=== PATIENT | female | born 1955 | race Hispanic/Latino ===

== ENCOUNTER 2017-11-23 10:16 | Emergency (ER) | payer SELFPAY ==
[~2017-11-23 10:16] MED LIST: OSEL75 PO
[2017-11-23 11:23] LABS: RAPID GROUP A STREP NEGATIVE (NEGATIVE)
== END 2017-11-23 11:40 | disposition home or self-care (01) ==
LOC: EDH 10:16
DX: H61.22 Impacted cerumen, left ear (principal); J02.8 Acute pharyngitis due to other specified organisms; G43.909 Migraine, unspecified, not intractable, without status migrainosus; Z90.49 Acquired absence of other specified parts of digestive tract
CPT/HCPCS: 87804; 87880

== ENCOUNTER 2018-09-20 01:18 | Emergency (ER) | payer SELFPAY ==
[2018-09-20 01:55] LABS: BASOPHILS % (AUTO) 0.5 % (0.0-5.0); EOSINOPHILS % (AUTO) 1.2 % (0.0-8.0); HEMATOCRIT 41.6 % (36-48); LYMPHOCYTES % (AUTO) 20.4 % (21.0-51.0); MEAN CORPUSCULAR HEMOGLOBIN 30.2 pg (27.0-33.0); MEAN CORPUSCULAR HGB CONC 33.1 g/dL (32.0-36.0); MEAN CORPUSCULAR VOLUME 91.4 fL (79-99); MONOCYTES % (AUTO) 7.3 % (3.0-13.0); NEUTROPHILS % (AUTO) 70.6 % (40.0-77.0); NUCLEATED RED BLOOD CELLS 0.1 % (0.0-0.19); PLATELET COUNT (AUTO) 220 K/uL (130-400); RED BLOOD CELL COUNT(AUTO) 4.55 MIL/uL (4.00-5.50); RED CELL DISTRIBUTION WIDTH 12.8 % (11.0-15.5); WHITE BLOOD COUNT (AUTO) 12.5 K/uL (4.8-10.8)
[2018-09-20] MEDS ORDERED: MORPHINE SULFATE 4 MG/1ML SYG ONE (01:55)
[2018-09-20] MEDS ORDERED: ONDANSETRON HCL 4 MG/2 ML VIAL ONE (01:55)
[2018-09-20] MEDS ORDERED: SODIUM CHLORIDE 0.9% 1000ML 1,000 ML IV ONE (01:55)
[2018-09-20 02:08] LABS: CREATININE 0.7 mg/dL (0.5-1.5); POTASSIUM 4.1 mmol/L (3.5-5.1)
[2018-09-20 02:12] LABS: ALBUMIN 3.8 g/dL (3.5-5.0); BILIRUBIN,TOTAL 0.3 mg/dL (0.2-1.0); TOTAL PROTEIN, SERUM 8.2 g/dL (6.0-8.3)
[2018-09-20 02:19] LABS: APPEARANCE,URINE Clear (CLEAR); BILIRUBIN,URINE Negative (NEGATIVE); COLOR,URINE Yellow (YELLOW); GLUCOSE, URINE (UA) Negative (NEGATIVE); KETONES,URINE Negative (NEGATIVE); LEUKOCYTE ESTERASE ,URINE Negative (NEGATIVE); NITRATE,URINE Negative (NEGATIVE); OCCULT BLOOD,URINE Negative (NEGATIVE); PROTEIN,URINE Negative (NEGATIVE); UROBILINOGEN,URINE 0.2 mg/dL (0.2-1.0)
[2018-09-20] MEDS ORDERED: IOHEXOL-350 75 ML VIAL IV ONE (03:14)
[2018-09-20] MEDS ORDERED: DiphenhydrAMINE HCL 50 MG/ML VIAL ONE (03:34)
[2018-09-20] MEDS ORDERED: PROCHLORPERAZINE EDISYLATE 10 MG/2 ML VIAL ONE (03:34)
[2018-09-20] MEDS ORDERED: SODIUM CHLORIDE 0.9% 500ML 500 ML IV ONE (03:34)
== END 2018-09-20 05:53 | disposition home or self-care (01) ==
LOC: EDH 01:18
DX: K52.9 Noninfective gastroenteritis and colitis, unspecified (principal); G43.909 Migraine, unspecified, not intractable, without status migrainosus; Z90.49 Acquired absence of other specified parts of digestive tract
CPT/HCPCS: 36415; 74177; 80053; 81003; 82550; 83690; 84484; 85025; 93005; 96361; 96374; 96375; 99285; J2270; J2405; J7030; Q9967; J0780; J1200; J7040

== ENCOUNTER 2018-10-08 22:44 | Emergency (ER) | payer OTHER | END 2018-10-08 23:17 | disposition home or self-care (01) | LOC: EDH 22:44 | DX: J06.9 Acute upper respiratory infection, unspecified (principal); G43.909 Migraine, unspecified, not intractable, without status migrainosus; Z90.49 Acquired absence of other specified parts of digestive tract | CPT/HCPCS: 99281 ==

== ENCOUNTER 2018-11-21 23:25 | Emergency (ER) | payer OTHER ==
[2018-11-22 00:11] LABS: APPEARANCE,URINE Clear (CLEAR); BILIRUBIN,URINE Negative (NEGATIVE); COLOR,URINE Yellow (YELLOW); GLUCOSE, URINE (UA) Negative (NEGATIVE); KETONES,URINE Negative (NEGATIVE); LEUKOCYTE ESTERASE ,URINE Negative (NEGATIVE); NITRATE,URINE Negative (NEGATIVE); OCCULT BLOOD,URINE Negative (NEGATIVE); PROTEIN,URINE Negative (NEGATIVE); UROBILINOGEN,URINE 0.2 mg/dL (0.2-1.0)
[2018-11-22 00:25] LABS: BASOPHILS % (AUTO) 0.5 % (0.0-5.0); EOSINOPHILS % (AUTO) 0.3 % (0.0-8.0); HEMATOCRIT 35.5 % (36-48); LYMPHOCYTES % (AUTO) 16.9 % (21.0-51.0); MEAN CORPUSCULAR HEMOGLOBIN 30.5 pg (27.0-33.0); MEAN CORPUSCULAR HGB CONC 33.8 g/dL (32.0-36.0); MEAN CORPUSCULAR VOLUME 90.1 fL (79-99); MONOCYTES % (AUTO) 11.4 % (3.0-13.0); NEUTROPHILS % (AUTO) 70.9 % (40.0-77.0); PLATELET COUNT (AUTO) 210 K/uL (130-400); RED BLOOD CELL COUNT(AUTO) 3.94 MIL/uL (4.00-5.50); RED CELL DISTRIBUTION WIDTH 12.9 % (11.0-15.5); WHITE BLOOD COUNT (AUTO) 12.8 K/uL (4.8-10.8)
[2018-11-22] MEDS ORDERED: SODIUM CHLORIDE 0.9% 500ML 500 ML IV ONE (00:30)
[2018-11-22] MEDS ORDERED: ACETAMINOPHEN EXTRA STRENGTH 500 MG TABLET ONE (00:30)
[2018-11-22 00:35] LABS: CREATININE 0.7 mg/dL (0.5-1.5); POTASSIUM 4.1 mmol/L (3.5-5.1)
[2018-11-22 00:42] LABS: ALBUMIN 3.4 g/dL (3.5-5.0); BILIRUBIN,TOTAL 0.5 mg/dL (0.2-1.0); TOTAL PROTEIN, SERUM 7.8 g/dL (6.0-8.3)
== END 2018-11-22 02:03 | disposition home or self-care (01) ==
LOC: EDH 23:25
DX: J06.9 Acute upper respiratory infection, unspecified (principal); Z90.49 Acquired absence of other specified parts of digestive tract
CPT/HCPCS: 36415 ×2; 71045; 80053; 81003; 83605; 85025; 87040 ×2; 87088; 87804 ×2; 99284; J7040

== ENCOUNTER 2019-01-28 09:04 | Inpatient (IN) | payer SELFPAY ==
[~2019-01-28] VITALS: Ht 144.8 cm; Wt 75.3 kg
[2019-01-28 09:32] LABS: BASOPHILS % (AUTO) 0.8 % (0.0-5.0); EOSINOPHILS % (AUTO) 3.9 % (0.0-8.0); HEMATOCRIT 37.6 % (36-48); MEAN CORPUSCULAR HEMOGLOBIN 30.8 pg (27.0-33.0); MEAN CORPUSCULAR HGB CONC 34.2 g/dL (32.0-36.0); MONOCYTES % (AUTO) 7.6 % (3.0-13.0); NEUTROPHILS % (AUTO) 48.7 % (40.0-77.0); PLATELET COUNT (AUTO) 218 K/uL (130-400); RED BLOOD CELL COUNT(AUTO) 4.18 MIL/uL (4.00-5.50); RED CELL DISTRIBUTION WIDTH 13.9 % (11.0-15.5); WHITE BLOOD COUNT (AUTO) 6.7 K/uL (4.8-10.8)
[2019-01-28 09:44] LABS: CREATININE 0.7 mg/dL (0.5-1.5); POTASSIUM 3.7 mmol/L (3.5-5.1)
[2019-01-28 09:45] LABS: INR 0.96 (0.85-1.15); PROTHROMBIN TIME 10.1 SEC (9.6-11.6)
[2019-01-28 09:54] LABS: ALBUMIN 3.7 g/dL (3.5-5.0); BILIRUBIN,TOTAL 0.5 mg/dL (0.2-1.0); TOTAL PROTEIN, SERUM 7.8 g/dL (6.0-8.3)
[2019-01-28] MEDS ORDERED: ASPIRIN 325 MG TABLET ONE (10:26)
[2019-01-28] MEDS ORDERED: MECLIZINE HCL 25 MG TABLET ONE (10:26)
[2019-01-28] MEDS: SODIUM CHLORIDE 0.9% 1000ML 1,000 ML IV SCH ×2 (13:27→23:27)
[2019-01-28] MEDS ORDERED: ONDANSETRON HCL 4 MG/2 ML VIAL IV PRN (13:30)
[2019-01-28] MEDS ORDERED: ACETAMINOPHEN 325 MG TAB PO PRN (13:30)
[2019-01-28] MEDS ORDERED: LACTULOSE 20 GM/30 ML UDCUP PO PRN (13:30)
[2019-01-28] MEDS ORDERED: ALBUTEROL SULFATE 0.083% 2.5 MG/3 ML INH IH ONE (13:41)
[2019-01-28 14:16] LABS: % IRON SATURATION 33.3 % (22-44)
[2019-01-28 14:26] LABS: CREATINE KINASE, TOTAL 75 U/L (21-232); MYOGLOBIN 32 ng/mL (10-92); TROPONIN I < 0.04 ng/mL (0.00-0.06)
[2019-01-28 15:28] LABS: APPEARANCE,URINE Clear (CLEAR); BILIRUBIN,URINE Negative (NEGATIVE); COLOR,URINE Yellow (YELLOW); GLUCOSE, URINE (UA) Negative (NEGATIVE); KETONES,URINE Negative (NEGATIVE); LEUKOCYTE ESTERASE ,URINE Negative (NEGATIVE); NITRATE,URINE Negative (NEGATIVE); OCCULT BLOOD,URINE Negative (NEGATIVE); PROTEIN,URINE Negative (NEGATIVE)
[2019-01-28 15:39] LABS: BACTERIA,URINE Rare /HPF (None Seen); RBC,URINE 0-1 /HPF (0-1); SQUAMOUS EPITHELIAL CELL,UR Rare /HPF (0-2); WBC,URINE 0-1 /HPF (0-1)
[2019-01-28] MEDS ORDERED: ENOXAPARIN SODIUM 40 MG/0.4 ML SYRINGE SQ ONE (17:20)
[2019-01-28] MEDS: ALBUTEROL SULFATE 0.083% 2.5 MG/3 ML INH IH SCH ×2 (18:24→23:48)
[2019-01-28 20:39] VITALS: BP 98/53
--- NOTE | 2019-01-28 22:00 | NUR ---
Dr. Vee came to see patient, ordered Ibuprofen 800 mg PO every 8 hours x 6 doses for muscle pain. First dose administered as per order.
[2019-01-28 22:01] LABS: CREATINE KINASE, TOTAL 55 U/L (21-232); MYOGLOBIN 20 ng/mL (10-92); TROPONIN I < 0.04 ng/mL (0.00-0.06)
[2019-01-28] MEDS: FAMOTIDINE 20MG TAB 20 MG TAB PO SCH (22:25)
[2019-01-28] MEDS: IBUPROFEN 800 MG TAB PO SCH (23:16)
[2019-01-28 23:30] VITALS: BP 95/46
--- NOTE | 2019-01-29 02:00 | NUR ---
ROUNDS PT RESTING WELL, FAIRLY ASLEEP WITH RESPIRATIONS EVEN AND UNLABORED. NO DISTRESS NOTED. KEPT UNDISTURBED FOR NOW. CALL LIGHT WITHIN REACH. FAMILY AT BEDSIDE. WILL MONITOR PT.
[2019-01-29 03:00] VITALS: BP 95/45
[2019-01-29 05:39] LABS: CREATINE KINASE, TOTAL 47 U/L (21-232); MYOGLOBIN 21 ng/mL (10-92); TROPONIN I < 0.04 ng/mL (0.00-0.06)
[2019-01-29] MEDS: ALBUTEROL SULFATE 0.083% 2.5 MG/3 ML INH IH SCH ×2 (06:50→11:32)
[2019-01-29] MEDS: SODIUM CHLORIDE 0.9% 1000ML 1,000 ML IV SCH (07:02)
[2019-01-29] MEDS: IBUPROFEN 800 MG TAB PO SCH (07:02)
--- NOTE | 2019-01-29 07:30 | NUR ---
REPORT PURNIMA OCAMPO ON ORIENTATION, GAVE REPORT TO GONZALES LOCKETT RN. NURSE'S ROUNDS DONE. PT STILL FAIRLY ASLEEP. FOR MORE CARE AND MANAGEMENT.
[2019-01-29 08:01] VITALS: BP 113/57
[2019-01-29] MEDS: FAMOTIDINE 20MG TAB 20 MG TAB PO SCH (08:46)
[2019-01-29] MEDS ORDERED: ENOXAPARIN SODIUM 40 MG/0.4 ML SYRINGE SQ SCH (09:00)
[2019-01-29] MEDS ORDERED: ASPIRIN 325 MG TABLET PO SCH (09:00)
[2019-01-29 11:29] VITALS: BP 118/68
--- NOTE | 2019-01-29 15:30 | NUR ---
Pt d/c home Pt safely d/c home, d/c instruction given, pt verbalized understanding, refused flu vaccine, stated she will get as out pt, IV removed, catheter tip intact, no complication noted, pt safely d/c home accompanied with her daughter.
--- NOTE | 2019-01-29 15:30 | NUR ---
KASSY SPOKE W PT AND ABIODUN AT [facility] PREPARING FOR DISCHARGE- PT IS AAOX3 LATVIAN SPEAKING INDP OF ADLS , NO DME; NO INSURANCE, NO CLINIC AFFLIATION; SELF PAY PKT GIVEN Addendum: 01/29/19 at 1718 by DANTE LINDSEY RN CM Amended: Links added.
== END 2019-01-29 15:36 | disposition home or self-care (01) | DRG 206 ==
LOC: EDH 09:04 → OBSVTOIN 09:05 → EDHIP 09:05 → 3DH 20:11
PROVIDERS: ADMIT Internal Medicine; ATTEND Internal Medicine
DX: M94.0 Chondrocostal junction syndrome [Tietze] (principal); Z80.0 Family history of malignant neoplasm of digestive organs; Z82.3 Family history of stroke; Z83.3 Family history of diabetes mellitus; Z82.49 Family history of ischemic heart disease and other diseases of the circulatory system; Z90.49 Acquired absence of other specified parts of digestive tract
CPT/HCPCS: 36415; 70450; 71045; 80053; 81001; 82550; 83540; 83550; 83874; 83880; 84443; 84484; 85025; 85610; 85730; 93005; 93306; 94640; 94664; G0378; J1650; J7030

== ENCOUNTER 2019-03-24 10:53 | Emergency (ER) | payer SELFPAY ==
[2019-03-24] MEDS ORDERED: ACETAMINOPHEN EXTRA STRENGTH 500 MG TABLET ONE (12:59)
[2019-03-24 13:34] LABS: BASOPHILS % (AUTO) 0.6 % (0.0-5.0); EOSINOPHILS % (AUTO) 0.1 % (0.0-8.0); LYMPHOCYTES % (AUTO) 11.5 % (21.0-51.0); MEAN CORPUSCULAR HEMOGLOBIN 30.3 pg (27.0-33.0); MEAN CORPUSCULAR HGB CONC 33.5 g/dL (32.0-36.0); MEAN CORPUSCULAR VOLUME 90.5 fL (79-99); MONOCYTES % (AUTO) 5.4 % (3.0-13.0); NEUTROPHILS % (AUTO) 82.4 % (40.0-77.0); PLATELET COUNT (AUTO) 202 K/uL (130-400); RED BLOOD CELL COUNT(AUTO) 4.09 MIL/uL (4.00-5.50); WHITE BLOOD COUNT (AUTO) 10.4 K/uL (4.8-10.8)
[2019-03-24 13:43] LABS: RAPID GROUP A STREP NEGATIVE (NEGATIVE)
[2019-03-24 13:52] LABS: CREATININE 0.8 mg/dL (0.5-1.5); POTASSIUM 4.1 mmol/L (3.5-5.1)
[2019-03-24 13:57] LABS: ALBUMIN 3.8 g/dL (3.5-5.0); BILIRUBIN,TOTAL 0.5 mg/dL (0.2-1.0); TOTAL PROTEIN, SERUM 8.1 g/dL (6.0-8.3)
== END 2019-03-24 15:42 | disposition home or self-care (01) ==
LOC: EDH 10:53
DX: J20.9 Acute bronchitis, unspecified (principal); M79.10 Myalgia, unspecified site; G43.909 Migraine, unspecified, not intractable, without status migrainosus
CPT/HCPCS: 36415; 71045; 80053; 82550; 84484; 85025; 87804; 87880; 93005

== ENCOUNTER 2019-03-26 04:01 | Emergency (ER) | payer SELFPAY ==
[2019-03-26] MEDS ORDERED: ACETAMINOPHEN 325 MG TAB ONE (04:23)
[2019-03-26 04:41] LABS: APPEARANCE,URINE Clear (CLEAR); BILIRUBIN,URINE Negative (NEGATIVE); COLOR,URINE Yellow (YELLOW); GLUCOSE, URINE (UA) Negative (NEGATIVE); KETONES,URINE Negative (NEGATIVE); LEUKOCYTE ESTERASE ,URINE Negative (NEGATIVE); NITRATE,URINE Negative (NEGATIVE); OCCULT BLOOD,URINE Trace (NEGATIVE); PH,URINE 5.5 (5.0-8.0); PROTEIN,URINE Negative (NEGATIVE)
[2019-03-26 04:46] LABS: BASOPHILS % (AUTO) 0.4 % (0.0-5.0); EOSINOPHILS % (AUTO) 0.3 % (0.0-8.0); HEMATOCRIT 36.7 % (36-48); LYMPHOCYTES % (AUTO) 14.9 % (21.0-51.0); MEAN CORPUSCULAR HEMOGLOBIN 30.2 pg (27.0-33.0); MEAN CORPUSCULAR HGB CONC 33.5 g/dL (32.0-36.0); MEAN CORPUSCULAR VOLUME 90.1 fL (79-99); MONOCYTES % (AUTO) 8.1 % (3.0-13.0); NEUTROPHILS % (AUTO) 76.3 % (40.0-77.0); PLATELET COUNT (AUTO) 199 K/uL (130-400); RED BLOOD CELL COUNT(AUTO) 4.07 MIL/uL (4.00-5.50); RED CELL DISTRIBUTION WIDTH 13.1 % (11.0-15.5); WHITE BLOOD COUNT (AUTO) 11.3 K/uL (4.8-10.8)
[2019-03-26 04:51] LABS: CARBON DIOXIDE 28 mmol/L (21-32); CHLORIDE 100 mmol/L (101-111); CREATININE 0.7 mg/dL (0.5-1.5); GLOMERULAR FILTR. RATE CALC 90 mL/min (>60); GLUCOSE,RANDOM 126 mg/dL (70-105); POTASSIUM 4.1 mmol/L (3.5-5.1); SODIUM SERUM 137 mmol/L (136-145); UREA NITROGEN, BLOOD 11 mg/dL (7-18)
[2019-03-26 04:57] LABS: INR 0.97 (0.85-1.15); PARTIAL THROMBOPLASTIN TIME 26.8 SEC (26.3-35.5); PROTHROMBIN TIME 10.2 SEC (9.6-11.6)
[2019-03-26 05:01] LABS: ALANINE AMINOTRANSFERASE 20 U/L (12-78); ALBUMIN 3.5 g/dL (3.5-5.0); ASPARTATE AMINOTRANSFERASE 20 U/L (10-37); BILIRUBIN,TOTAL 0.3 mg/dL (0.2-1.0); CREATINE KINASE, TOTAL 63 U/L (21-232); MYOGLOBIN 18 ng/mL (10-92); TROPONIN I < 0.04 ng/mL (0.00-0.06)
[2019-03-26 05:39] LABS: BACTERIA,URINE Rare /HPF (None Seen); RBC,URINE 0-1 /HPF (0-1); SQUAMOUS EPITHELIAL CELL,UR 0-2 /HPF (0-2); WBC,URINE 0-1 /HPF (0-1)
[2019-03-26] MEDS ORDERED: BENZONATATE 100 MG CAPSULE PO ONE (06:37)
[2019-03-26] MEDS ORDERED: IBUPROFEN 200 MG TAB ONE (06:37)
[2019-03-26] MEDS ORDERED: IBUPROFEN 400 MG TABLET ONE (06:37)
== END 2019-03-26 07:04 | disposition home or self-care (01) ==
LOC: EDH 04:01
DX: B34.9 Viral infection, unspecified (principal); R50.81 Fever presenting with conditions classified elsewhere; G43.909 Migraine, unspecified, not intractable, without status migrainosus
CPT/HCPCS: 36415; 71046; 80053; 81001; 82550; 83605; 83874; 84484; 85025; 85610; 85730; 87040; 87088; 87804; 87880; 93005

== ENCOUNTER 2019-04-15 06:51 | Emergency (ER) | payer SELFPAY ==
[2019-04-15 07:54] LABS: BASOPHILS % (AUTO) 0.4 % (0.0-5.0); EOSINOPHILS % (AUTO) 0.6 % (0.0-8.0); HEMATOCRIT 33.1 % (36-48); LYMPHOCYTES % (AUTO) 11.8 % (21.0-51.0); MEAN CORPUSCULAR HEMOGLOBIN 30.4 pg (27.0-33.0); MEAN CORPUSCULAR HGB CONC 33.3 g/dL (32.0-36.0); MEAN CORPUSCULAR VOLUME 91.4 fL (79-99); NEUTROPHILS % (AUTO) 81.2 % (40.0-77.0); PLATELET COUNT (AUTO) 196 K/uL (130-400); RED BLOOD CELL COUNT(AUTO) 3.62 MIL/uL (4.00-5.50); RED CELL DISTRIBUTION WIDTH 13.4 % (11.0-15.5); WHITE BLOOD COUNT (AUTO) 12.1 K/uL (4.8-10.8)
[2019-04-15] MEDS ORDERED: ONDANSETRON HCL 4 MG/2 ML VIAL ONE (08:01)
[2019-04-15 08:02] LABS: CREATININE 0.5 mg/dL (0.5-1.5); POTASSIUM 3.8 mmol/L (3.5-5.1)
[2019-04-15] MEDS ORDERED: DIPHENOXYLATE HCL/ATROPINE 2.5/0.025 MG TAB PO ONE (08:02)
[2019-04-15] MEDS ORDERED: SODIUM CHLORIDE 0.9% 1000ML 1,000 ML IV ONE (08:02)
[2019-04-15 08:04] LABS: APPEARANCE,URINE Cloudy (CLEAR); BILIRUBIN,URINE Negative (NEGATIVE); COLOR,URINE Yellow (YELLOW); GLUCOSE, URINE (UA) Negative (NEGATIVE); KETONES,URINE Negative (NEGATIVE); LEUKOCYTE ESTERASE ,URINE Trace (NEGATIVE); NITRATE,URINE Negative (NEGATIVE); OCCULT BLOOD,URINE Negative (NEGATIVE); PH,URINE 6.5 (5.0-8.0); PROTEIN,URINE Trace mg/dL (NEGATIVE)
[2019-04-15] MEDS ORDERED: IBUPROFEN 600 MG TABLET ONE (08:06)
[2019-04-15 08:07] LABS: TOTAL PROTEIN, SERUM 7.5 g/dL (6.0-8.3)
[2019-04-15 08:15] LABS: ALBUMIN 3.5 g/dL (3.5-5.0)
[2019-04-15 08:35] LABS: BACTERIA,URINE Moderate /HPF (None Seen); RBC,URINE 0-1 /HPF (0-1); SQUAMOUS EPITHELIAL CELL,UR Few /HPF (0-2); WBC,URINE 0-1 /HPF (0-1)
[2019-04-15] MEDS ORDERED: IOHEXOL-350 75 ML VIAL IV ONE (08:35)
[2019-04-15 08:36] LABS: MUCUS,URINE Rare LPF (None Seen)
== END 2019-04-15 10:22 | disposition home or self-care (01) ==
LOC: EDH 06:51
DX: K57.92 Diverticulitis of intestine, part unspecified, without perforation or abscess without bleeding (principal); G43.909 Migraine, unspecified, not intractable, without status migrainosus
CPT/HCPCS: 36415; 74177; 80053; 81001; 83690; 85025; 87804 ×2; 96361; 96374; 99285; J2405; J7030; Q9967

== ENCOUNTER 2019-06-19 15:08 | Emergency (ER) | payer SELFPAY ==
[2019-06-19 15:29] LABS: BASOPHILS % (AUTO) 0.4 % (0.0-5.0); EOSINOPHILS % (AUTO) 2.2 % (0.0-8.0); HEMATOCRIT 37.2 % (36-48); LYMPHOCYTES % (AUTO) 31.9 % (21.0-51.0); MEAN CORPUSCULAR HEMOGLOBIN 30.5 pg (27.0-33.0); MEAN CORPUSCULAR HGB CONC 33.6 g/dL (32.0-36.0); MEAN CORPUSCULAR VOLUME 90.6 fL (79-99); MONOCYTES % (AUTO) 9.1 % (3.0-13.0); NEUTROPHILS % (AUTO) 56.4 % (40.0-77.0); PLATELET COUNT (AUTO) 234 K/uL (130-400); RED BLOOD CELL COUNT(AUTO) 4.11 MIL/uL (4.00-5.50); RED CELL DISTRIBUTION WIDTH 13.8 % (11.0-15.5); WHITE BLOOD COUNT (AUTO) 9.3 K/uL (4.8-10.8)
[2019-06-19 15:43] LABS: CREATININE 0.8 mg/dL (0.5-1.5); POTASSIUM 3.8 mmol/L (3.5-5.1)
[2019-06-19 15:48] LABS: ALBUMIN 3.8 g/dL (3.5-5.0); BILIRUBIN,TOTAL 0.3 mg/dL (0.2-1.0); TOTAL PROTEIN, SERUM 7.4 g/dL (6.0-8.3)
[2019-06-19 15:56] LABS: CREATINE KINASE, TOTAL 87 U/L (21-232); MYOGLOBIN 26 ng/mL (10-92); TROPONIN I < 0.04 ng/mL (0.00-0.06)
[2019-06-19] MEDS ORDERED: CYCLOBENZAPRINE HCL 10 MG TABLET ONE (17:56)
[2019-06-19] MEDS ORDERED: TRAMADOL HCL 50 MG TABLET ONE (17:57)
== END 2019-06-19 19:09 | disposition home or self-care (01) ==
LOC: EDH 15:08
DX: M25.512 Pain in left shoulder (principal); M54.2 Cervicalgia; G43.909 Migraine, unspecified, not intractable, without status migrainosus
CPT/HCPCS: 36415; 71045; 72125; 80053; 82550; 83874; 84443; 84484; 85025; 93005

== ENCOUNTER 2019-07-18 15:49 | Emergency (ER) | payer SELFPAY ==
[2019-07-18 16:30] LABS: BASOPHILS % (AUTO) 0.4 % (0.0-5.0); EOSINOPHILS % (AUTO) 1.3 % (0.0-8.0); HEMATOCRIT 38.3 % (36-48); LYMPHOCYTES % (AUTO) 21.5 % (21.0-51.0); MEAN CORPUSCULAR HEMOGLOBIN 30.8 pg (27.0-33.0); MEAN CORPUSCULAR HGB CONC 34.2 g/dL (32.0-36.0); MEAN CORPUSCULAR VOLUME 89.9 fL (79-99); MONOCYTES % (AUTO) 6.9 % (3.0-13.0); NEUTROPHILS % (AUTO) 69.9 % (40.0-77.0); NUCLEATED RED BLOOD CELLS 0.1 % (0.0-0.19); PLATELET COUNT (AUTO) 264 K/uL (130-400); RED BLOOD CELL COUNT(AUTO) 4.26 MIL/uL (4.00-5.50); RED CELL DISTRIBUTION WIDTH 13.8 % (11.0-15.5); WHITE BLOOD COUNT (AUTO) 12.2 K/uL (4.8-10.8)
[2019-07-18] MEDS ORDERED: SODIUM CHLORIDE 0.9% 1000ML 1,000 ML IV ONE (16:30)
[2019-07-18] MEDS ORDERED: ONDANSETRON HCL 4 MG/2 ML VIAL ONE (16:30)
[2019-07-18 16:32] LABS: CREATININE 0.8 mg/dL (0.5-1.5); POTASSIUM 3.5 mmol/L (3.5-5.1)
[2019-07-18 16:36] LABS: BILIRUBIN,TOTAL 0.2 mg/dL (0.2-1.0); TOTAL PROTEIN, SERUM 8.2 g/dL (6.0-8.3)
== END 2019-07-18 18:25 | disposition home or self-care (01) ==
LOC: EDH 15:49
DX: A09 Infectious gastroenteritis and colitis, unspecified (principal); E86.9 Volume depletion, unspecified; G43.909 Migraine, unspecified, not intractable, without status migrainosus
CPT/HCPCS: 36415; 74176; 80053; 83690; 85025; 96361; 96374; 99285; J2405; J7030

== ENCOUNTER 2019-09-09 16:05 | Observation (INO) | payer SELFPAY ==
[~2019-09-09] VITALS: Ht 144.8 cm; Wt 76.6 kg
[2019-09-09 09:30] VITALS: BP 127/76
[2019-09-09] MEDS ORDERED: ASPIRIN 325 MG TABLET ONE (16:14)
[2019-09-09 16:31] LABS: CREATININE 0.7 mg/dL (0.5-1.5); POTASSIUM 3.9 mmol/L (3.5-5.1)
[2019-09-09 16:32] LABS: INR 0.98 (0.85-1.15); PARTIAL THROMBOPLASTIN TIME 25.6 SEC (26.3-35.5); PROTHROMBIN TIME 10.3 SEC (9.6-11.6)
[2019-09-09 16:34] LABS: ALBUMIN 3.6 g/dL (3.5-5.0); BASOPHILS % (AUTO) 0.8 % (0.0-5.0); BILIRUBIN,TOTAL 0.3 mg/dL (0.2-1.0); EOSINOPHILS % (AUTO) 2.8 % (0.0-8.0); HEMATOCRIT 35.1 % (36-48); LYMPHOCYTES % (AUTO) 34.8 % (21.0-51.0); MEAN CORPUSCULAR HEMOGLOBIN 31.5 pg (27.0-33.0); MEAN CORPUSCULAR HGB CONC 34.3 g/dL (32.0-36.0); MEAN CORPUSCULAR VOLUME 91.9 fL (79-99); MONOCYTES % (AUTO) 7.4 % (3.0-13.0); NEUTROPHILS % (AUTO) 54.2 % (40.0-77.0); NUCLEATED RED BLOOD CELLS 0.1 % (0.0-0.19); PLATELET COUNT (AUTO) 199 K/uL (130-400); RED BLOOD CELL COUNT(AUTO) 3.82 MIL/uL (4.00-5.50); RED CELL DISTRIBUTION WIDTH 13.1 % (11.0-15.5); TOTAL PROTEIN, SERUM 7.7 g/dL (6.0-8.3); WHITE BLOOD COUNT (AUTO) 7.7 K/uL (4.8-10.8)
[2019-09-09] MEDS ORDERED: METOPROLOL TARTRATE 25 MG TAB ONE ×2 (17:56→20:19)
[2019-09-09] MEDS ORDERED: NITROGLYCERIN 1GM/1 INCH PACKET TD ONE (18:42)
[2019-09-09] MEDS ORDERED: MORPHINE SULFATE 2 MG/ML 1ML SYG IV PRN (19:15)
[2019-09-09] MEDS ORDERED: NITROGLYCERIN 0.4 MG SL TAB SL PRN (19:15)
[2019-09-09] MEDS ORDERED: ACETAMINOPHEN 325 MG TAB PO PRN ×2 (19:15)
[2019-09-09] MEDS ORDERED: LACTULOSE 20 GM/30 ML UDCUP PO PRN (19:15)
[2019-09-09] MEDS ORDERED: ONDANSETRON HCL 4 MG/2 ML VIAL IV PRN (19:15)
[2019-09-09] MEDS ORDERED: ATORVASTATIN CALCIUM 20 MG TABLET ONE (20:19)
[2019-09-09] MEDS ORDERED: FAMOTIDINE 20MG TAB 20 MG TAB ONE (20:19)
[2019-09-09 20:59] LABS: HEMOGLOBIN A1C 6.1 % (4.0-6.0)
[2019-09-09] MEDS: METOPROLOL TARTRATE 25 MG TAB PO SCH (21:00)
[2019-09-09] MEDS ORDERED: ATORVASTATIN CALCIUM 20 MG TABLET PO SCH (21:00)
[2019-09-09] MEDS: FAMOTIDINE 20MG TAB 20 MG TAB PO SCH (21:00)
[2019-09-09 21:10] LABS: CHOLESTEROL 250 mg/dL (<200); LDL DIRECT 166 mg/dL (0-99); TRIGLYCERIDES 174 mg/dL (30-200)
[2019-09-09 21:24] LABS: HDL CHOLESTEROL 68 mg/dL (35-85)
[2019-09-09 23:00] VITALS: BP 102/44
[2019-09-10 03:00] VITALS: BP 121/75
[2019-09-10] MEDS: INSULIN HUMULIN R 100 UNIT/ML 3ML SQ SCH ×2 (05:54→11:30)
[2019-09-10 07:00] VITALS: BP 133/65
[2019-09-10] MEDS ORDERED: FLU VACC QS2019-20 36MOS UP/PF 60 MCG/0.5 ML ML IM ONE ×2 (09:00→17:07)
[2019-09-10] MEDS ORDERED: ENOXAPARIN SODIUM 30 MG/0.3 ML SQ SCH (09:00)
[2019-09-10] MEDS ORDERED: ASPIRIN 325 MG TABLET PO SCH (09:00)
[2019-09-10] MEDS: METOPROLOL TARTRATE 25 MG TAB PO SCH (09:10)
[2019-09-10 12:00] VITALS: BP 125/58
--- NOTE | 2019-09-10 16:21 | NUR ---
RD Notification Pt admitted for Chest Pain R/O ACS. Pt A1C within Pre-diabetes range (6.1%) with elevated serum cholesterol (250), LDL (166) levels. Pt tolerating Heart healthy Diet order. RD to follow up with Heart healthy Diet education. Pt LBB 09/09/19. Pt monitored labs: A1C 6.1, Glu 128, Chol 250, [id number]. Pt also with Grade II obesity (BMI 36.5). RD to follow up. Please notify RD as additional nutrition concerns arise. Thank you. Addendum: 09/10/19 at [address] RD Amended: Links added.
[2019-09-10 16:22] VITALS: BP 128/56
[2019-09-10] MEDS: FAMOTIDINE 20MG TAB 20 MG TAB PO SCH (17:13)
--- NOTE | 2019-09-10 17:51 | NUR ---
BNP RESULTS Informed Nurse Practitioner Sosa Angel of BNP results and she informed Dr. Duran. Gave orders for D/C. Instructions given. Hep lock removed without any issues.
== END 2019-09-10 18:00 | disposition home or self-care (01) ==
LOC: EDH 16:05 → EDHIP 16:06 → 3CH 21:14
PROVIDERS: ADMIT Hospitalist; ATTEND Hospitalist
DX: R07.89 Other chest pain (principal); E11.65 Type 2 diabetes mellitus with hyperglycemia; R06.02 Shortness of breath; E78.5 Hyperlipidemia, unspecified; G43.909 Migraine, unspecified, not intractable, without status migrainosus; Z23 Encounter for immunization; Z90.49 Acquired absence of other specified parts of digestive tract
CPT/HCPCS: 36415 ×2; 71045; 80053; 80061; 82550; 82948 ×3; 83036; 83880 ×2; 84484 ×5; 85025; 85378; 85610; 85730; 90471; 93005 ×5; 96372; 99284; G0378 ×23; J1650; Q2035

== ENCOUNTER 2020-01-16 21:25 | Emergency (ER) | payer MEDICARE, OTHER ==
[2020-01-16] MEDS ORDERED: ASPIRIN 325 MG TABLET ONE (21:34)
[2020-01-16 21:52] LABS: BASOPHILS % (AUTO) 0.4 % (0.0-5.0); EOSINOPHILS % (AUTO) 2.2 % (0.0-8.0); HEMATOCRIT 36.1 % (36-48); LYMPHOCYTES % (AUTO) 37.5 % (21.0-51.0); MEAN CORPUSCULAR HEMOGLOBIN 29.5 pg (27.0-33.0); MEAN CORPUSCULAR HGB CONC 32.1 g/dL (32.0-36.0); MEAN CORPUSCULAR VOLUME 91.9 fL (79-99); MONOCYTES % (AUTO) 8.4 % (3.0-13.0); NEUTROPHILS % (AUTO) 51.2 % (40.0-77.0); PLATELET COUNT (AUTO) 211 K/uL (130-400); RED BLOOD CELL COUNT(AUTO) 3.93 MIL/uL (4.00-5.50); RED CELL DISTRIBUTION WIDTH 12.3 % (11.0-15.5); WHITE BLOOD COUNT (AUTO) 9.2 K/uL (4.8-10.8)
[2020-01-16 21:56] LABS: CREATININE 0.9 mg/dL (0.5-1.5); POTASSIUM 3.5 mmol/L (3.5-5.1)
[2020-01-16 21:59] LABS: INR 0.97 (0.85-1.15); PARTIAL THROMBOPLASTIN TIME 24.3 SEC (26.3-35.5); PROTHROMBIN TIME 10.2 SEC (9.6-11.6)
[2020-01-16 22:00] LABS: ALBUMIN 3.5 g/dL (3.5-5.0); BILIRUBIN,TOTAL 0.2 mg/dL (0.2-1.0); TOTAL PROTEIN, SERUM 7.6 g/dL (6.0-8.3)
[2020-01-16] MEDS ORDERED: KETOROLAC TROMETHAMINE 15MG/ML ONE (22:20)
== END 2020-01-16 23:16 | disposition home or self-care (01) ==
LOC: EDH 21:25
DX: M54.12 Radiculopathy, cervical region (principal); M25.512 Pain in left shoulder; G43.909 Migraine, unspecified, not intractable, without status migrainosus; R79.1 Abnormal coagulation profile; Z90.49 Acquired absence of other specified parts of digestive tract
CPT/HCPCS: 36415; 71045; 72040; 73030; 80053; 82550; 84484; 85025; 85610; 85730; 93005; 96374; 99285; J1885

== ENCOUNTER 2021-08-12 02:51 | Emergency (ER) | payer OTHER ==
[~2021-08-12] VITALS: Ht 144.8 cm; Wt 77.6 kg
[2021-08-12 03:32] VITALS: BP 156/76
[2021-08-12 05:43] LABS: BASOPHILS % (AUTO) 0.4 % (0.0-5.0); EOSINOPHILS % (AUTO) 1.9 % (0.0-8.0); HEMATOCRIT 38.9 % (36-48); LYMPHOCYTES % (AUTO) 15.8 % (21.0-51.0); MEAN CORPUSCULAR HEMOGLOBIN 29.7 pg (27.0-33.0); MEAN CORPUSCULAR HGB CONC 32.4 g/dL (32.0-36.0); MEAN CORPUSCULAR VOLUME 91.7 fL (79-99); MONOCYTES % (AUTO) 7.6 % (3.0-13.0); PLATELET COUNT (AUTO) 224 K/uL (130-400); RED BLOOD CELL COUNT(AUTO) 4.24 MIL/uL (4.00-5.50); RED CELL DISTRIBUTION WIDTH 12.9 % (11.0-15.5); WHITE BLOOD COUNT (AUTO) 10.3 K/uL (4.8-10.8)
[2021-08-12 05:53] LABS: CREATININE 0.7 mg/dL (0.5-1.5)
[2021-08-12 05:58] LABS: ALBUMIN 3.6 g/dL (3.5-5.0); BILIRUBIN,TOTAL 0.5 mg/dL (0.2-1.0); TOTAL PROTEIN, SERUM 7.7 g/dL (6.0-8.3)
[2021-08-12] MEDS ORDERED: AZITHROMYCIN 250 MG TABLET PO ONE ×2 (06:30→06:32)
[2021-08-12] MEDS ORDERED: SOLU-MEDROL 125MG VIAL IM ONE (06:30)
[2021-08-12] MEDS ORDERED: SOLU-MEDROL 125MG VIAL ONE (06:32)
[2021-08-12] MEDS ORDERED: METH4TAB3 PO (06:59)
[2021-08-12] MEDS ORDERED: AZIT500T PO (06:59)
== END 2021-08-12 07:30 | disposition home or self-care (01) ==
LOC: EDH 02:51
DX: J40 Bronchitis, not specified as acute or chronic (principal); Z90.49 Acquired absence of other specified parts of digestive tract; Z98.890 Other specified postprocedural states
CPT/HCPCS: 36415; 71045; 80053; 84484; 85025; 87804 ×2; 96372; 99284; J2930

== ENCOUNTER 2022-05-02 05:44 | Emergency (ER) | payer OTHER ==
[~2022-05-02 05:44] MED LIST changes: +AZIT500T PO; +METH4TAB3 PO; -OSEL75 PO
[2022-05-02 08:30] LABS: APPEARANCE,URINE SL CLOUDY (CLEAR); BILIRUBIN,URINE NEGATIVE (NEGATIVE); COLOR,URINE YELLOW (YELLOW); GLUCOSE, URINE (UA) NEGATIVE (NEGATIVE); KETONES,URINE NEGATIVE (NEGATIVE); LEUKOCYTE ESTERASE ,URINE NEGATIVE (NEGATIVE); NITRATE,URINE NEGATIVE (NEGATIVE); OCCULT BLOOD,URINE NEGATIVE (NEGATIVE); PROTEIN,URINE TRACE mg/dL (NEGATIVE); UROBILINOGEN,URINE 0.2 mg/dL (0.2-1.0)
[2022-05-02] MEDS ORDERED: 0.9%NACL 1000ML 1,000 ML IV ONE (08:30)
[2022-05-02] MEDS ORDERED: LIDOCAINE HCL 2% VISCOUS 15 ML UDCUP PO ONE (08:30)
[2022-05-02] MEDS ORDERED: MAG/ALUM/SIMETH 30 ML UDCUP PO ONE (08:30)
[2022-05-02] MEDS ORDERED: DICYCLOMINE HCL 10 MG/5 ML ML PO ONE (08:30)
[2022-05-02 08:39] LABS: BACTERIA,URINE Rare /HPF (None Seen); RBC,URINE 0-1 /HPF (0-1); SQUAMOUS EPITHELIAL CELL,UR Few /HPF (0-2); WBC,URINE 0-1 /HPF (0-1)
[2022-05-02 09:16] LABS: BASOPHILS % (AUTO) 0.2 % (0.0-5.0); EOSINOPHILS % (AUTO) 1.3 % (0.0-8.0); HEMATOCRIT 41.2 % (36-48); MEAN CORPUSCULAR HEMOGLOBIN 30.2 pg (27.0-33.0); MEAN CORPUSCULAR HGB CONC 32.8 g/dL (32.0-36.0); MEAN CORPUSCULAR VOLUME 92.2 fL (79-99); MONOCYTES % (AUTO) 6.8 % (3.0-13.0); NEUTROPHILS % (AUTO) 74.2 % (40.0-77.0); PLATELET COUNT (AUTO) 276 K/uL (130-400); RED BLOOD CELL COUNT(AUTO) 4.47 MIL/uL (4.00-5.50); RED CELL DISTRIBUTION WIDTH 12.8 % (11.0-15.5); WHITE BLOOD COUNT (AUTO) 14.2 K/uL (4.8-10.8)
[2022-05-02] MEDS ORDERED: PANTOPRAZOLE 40 MG/VIAL ONE (11:42)
[2022-05-02] MEDS ORDERED: KETOROLAC 30MG VIAL (30MG/ML) ONE (11:46)
[2022-05-02 11:48] LABS: CREATININE 0.7 mg/dL (0.5-1.5); POTASSIUM 4.1 mmol/L (3.5-5.1); TOTAL PROTEIN, SERUM 8.4 g/dL (6.0-8.3)
[2022-05-02 12:00] VITALS: BP 132/53
[2022-05-02] MEDS ORDERED: PANTOPRAZOLE 40 MG/VIAL IVP ONE (12:00)
[2022-05-02] MEDS ORDERED: KETOROLAC 30MG VIAL (30MG/ML) IVP ONE (12:00)
[2022-05-02] MEDS ORDERED: IOHEXOL 350 MG/ML 100ML INFUS..BTL IV ONE (12:56)
[2022-05-02] MEDS ORDERED: PANT40TA55 PO (14:24)
== END 2022-05-02 14:53 | disposition home or self-care (01) ==
LOC: EDH 05:44
DX: K29.70 Gastritis, unspecified, without bleeding (principal); Z79.52 Long term (current) use of systemic steroids; Z90.49 Acquired absence of other specified parts of digestive tract
CPT/HCPCS: 99285; 74177; 96361; 96374; 71045; 96375; 82550; 84484; 80053; 83690; 85025; 81001; 36415; 93005 ×2; J7030; J1885; C9113; Q9967

== ENCOUNTER 2023-01-07 20:52 | Emergency (ER) | payer OTHER ==
[~2023-01-07] VITALS: Ht 144.8 cm; Wt 80.3 kg
[~2023-01-07 20:52] MED LIST changes: +PANT40TA55 PO
[2023-01-07] MEDS ORDERED: ONDANSETRON 4MG INJ IVP ONE (22:00)
[2023-01-07] MEDS ORDERED: MORPHINE 2 MG SYG IVP ONE (22:00)
[2023-01-07 22:49] LABS: BASOPHILS % (AUTO) 0.4 % (0.0-5.0); LYMPHOCYTES % (AUTO) 21.7 % (21.0-51.0); MEAN CORPUSCULAR HEMOGLOBIN 29.6 pg (27.0-33.0); MEAN CORPUSCULAR HGB CONC 31.8 g/dL (32.0-36.0); MEAN CORPUSCULAR VOLUME 92.9 fL (79-99); MONOCYTES % (AUTO) 8.8 % (3.0-13.0); NEUTROPHILS % (AUTO) 67.7 % (40.0-77.0); PLATELET COUNT (AUTO) 232 K/uL (130-400); RED BLOOD CELL COUNT(AUTO) 4.09 MIL/uL (4.00-5.50); RED CELL DISTRIBUTION WIDTH 12.6 % (11.0-15.5); WHITE BLOOD COUNT (AUTO) 10.7 K/uL (4.8-10.8)
[2023-01-07 23:01] LABS: CREATININE 0.8 mg/dL (0.5-1.5); POTASSIUM 3.9 mmol/L (3.5-5.1)
[2023-01-07 23:07] LABS: ALBUMIN 3.7 g/dL (3.5-5.0); TOTAL PROTEIN, SERUM 7.5 g/dL (6.0-8.3)
[2023-01-08 00:15] VITALS: BP 124/60
[2023-01-08] MEDS ORDERED: METH4TAB3 PO (00:37)
[2023-01-08] MEDS ORDERED: SOLU-MEDROL 125MG VIAL IVP ONE (01:00)
== END 2023-01-08 00:48 | disposition home or self-care (01) ==
LOC: EDH 20:52
DX: S20.211A Contusion of right front wall of thorax, initial encounter (principal); S30.1XXA Contusion of abdominal wall, initial encounter; M94.0 Chondrocostal junction syndrome [Tietze]; Z90.49 Acquired absence of other specified parts of digestive tract; W18.30XA Fall on same level, unspecified, initial encounter; Y93.01 Activity, walking, marching and hiking; Y92.480 Sidewalk as the place of occurrence of the external cause; Y99.8 Other external cause status
CPT/HCPCS: 99285; 71250; 96374; 96375 ×2; 84484; 80053; 85025; 36415; 74176; J2405; J2930

== ENCOUNTER 2023-03-18 17:04 | Emergency (ER) | payer OTHER ==
[~2023-03-18] VITALS: Ht 152.4 cm; Wt 80.7 kg
[2023-03-18 17:05] VITALS: BP 180/75
[2023-03-18 17:41] LABS: BASOPHILS % (AUTO) 0.3 % (0.0-5.0); EOSINOPHILS % (AUTO) 2.2 % (0.0-8.0); HEMATOCRIT 39.9 % (36-48); LYMPHOCYTES % (AUTO) 27.9 % (21.0-51.0); MEAN CORPUSCULAR HEMOGLOBIN 29.8 pg (27.0-33.0); MEAN CORPUSCULAR HGB CONC 32.3 g/dL (32.0-36.0); MEAN CORPUSCULAR VOLUME 92.1 fL (79-99); MONOCYTES % (AUTO) 8.2 % (3.0-13.0); NEUTROPHILS % (AUTO) 61.1 % (40.0-77.0); PLATELET COUNT (AUTO) 248 K/uL (130-400); RED BLOOD CELL COUNT(AUTO) 4.33 MIL/uL (4.00-5.50); RED CELL DISTRIBUTION WIDTH 12.4 % (11.0-15.5); WHITE BLOOD COUNT (AUTO) 9.4 K/uL (4.8-10.8)
[2023-03-18 18:39] LABS: CREATININE 0.7 mg/dL (0.5-1.5); POTASSIUM 3.8 mmol/L (3.5-5.1)
[2023-03-18 18:42] LABS: ALBUMIN 3.7 g/dL (3.5-5.0)
[2023-03-18] MEDS ORDERED: AMOX500C2 PO (18:47)
[2023-03-18 18:54] LABS: TOTAL PROTEIN, SERUM 7.8 g/dL (6.0-8.3)
== END 2023-03-18 18:59 | disposition home or self-care (01) ==
LOC: EDH 17:04
DX: H66.92 Otitis media, unspecified, left ear (principal); Z90.49 Acquired absence of other specified parts of digestive tract
CPT/HCPCS: 36415; 70450; 80053; 83605; 85025

== ENCOUNTER 2023-08-24 11:54 | Emergency (ER) | payer OTHER ==
[~2023-08-24 11:54] MED LIST changes: +AMOX500C2 PO
[2023-08-24 15:16] LABS: CREATININE 0.6 mg/dL (0.5-1.5); POTASSIUM 3.6 mmol/L (3.5-5.1)
[2023-08-24 15:18] LABS: INR 0.94 (0.85-1.15); PROTHROMBIN TIME 10.9 SEC (9.6-11.6)
[2023-08-24 15:25] LABS: ALBUMIN 3.4 g/dL (3.5-5.0); BILIRUBIN,TOTAL 0.3 mg/dL (0.2-1.0); TOTAL PROTEIN, SERUM 7.3 g/dL (6.0-8.3)
[2023-08-24] MEDS ORDERED: DIAZEPAM 2 MG TAB ONE (18:07)
[2023-08-24] MEDS ORDERED: DIAZEPAM 2 MG TAB PO ONE (18:30)
[2023-08-24 18:34] LABS: BASOPHILS # (AUTO) 0.03 K/uL (0.00-0.20); BASOPHILS % (AUTO) 0.4 % (0.0-5.0); EOSINOPHILS # (AUTO) 0.15 K/uL (0.00-0.70); EOSINOPHILS % (AUTO) 1.9 % (0.0-8.0); IMMATURE GRANULOCYTE ABSOLUTE 0.01 K/uL (0-1); LYMPHOCYTES # (AUTO) 2.1 K/uL (1.0-4.8); LYMPHOCYTES % (AUTO) 26.2 % (21.0-51.0); MEAN CORPUSCULAR HGB CONC 31.8 g/dL (32.0-36.0); MEAN CORPUSCULAR VOLUME 94.4 fL (79-99); MONOCYTES # (AUTO) 0.9 K/uL (0.1-1.0); MONOCYTES % (AUTO) 10.8 % (3.0-13.0); NEUTROPHILS # (AUTO) 4.8 K/uL (1.8-7.7); NEUTROPHILS % (AUTO) 60.6 % (40.0-77.0); PLATELET COUNT (AUTO) 234 K/uL (130-400); RED BLOOD CELL COUNT(AUTO) 4.13 MIL/uL (4.00-5.50); RED CELL DISTRIBUTION WIDTH 12.7 % (11.0-15.5)
[2023-08-24 18:55] LABS: B-TYPE NATRIURETIC PEPTIDE 12 pg/mL (0-100)
== END 2023-08-24 19:21 | disposition home or self-care (01) ==
LOC: EDH 11:54
DX: F41.9 Anxiety disorder, unspecified (principal); F32.A Depression, unspecified; Z79.899 Other long term (current) drug therapy; Z90.49 Acquired absence of other specified parts of digestive tract; Z98.890 Other specified postprocedural states; Z88.8 Allergy status to other drugs, medicaments and biological substances
CPT/HCPCS: 36415; 71045; 80053; 82550; 83880; 84484; 85025; 85610; 93005

== ENCOUNTER 2023-10-26 11:03 | Emergency (ER) | payer OTHER ==
[~2023-10-26] VITALS: Ht 144.8 cm; Wt 77.1 kg
[2023-10-26 11:47] LABS: RAPID GROUP A STREP negative (NEGATIVE)
[2023-10-26 11:53] LABS: SARS-CoV-2, RNA, NAAT NEGATIVE SARS CoV-2 (NEGATIVE)
[2023-10-26 11:57] LABS: INFLUENZA TYPE B Negative For Type B (NEGATIVE)
[2023-10-26 12:10] LABS: APPEARANCE,URINE CLEAR (CLEAR); BILIRUBIN,URINE NEGATIVE (NEGATIVE); COLOR,URINE COLORLESS (YELLOW); GLUCOSE, URINE (UA) NEGATIVE (NEGATIVE); KETONES,URINE NEGATIVE (NEGATIVE); LEUKOCYTE ESTERASE ,URINE NEGATIVE Leu/uL (NEGATIVE); NITRATE,URINE NEGATIVE (NEGATIVE); OCCULT BLOOD,URINE NEGATIVE (NEGATIVE); PROTEIN,URINE NEGATIVE (NEGATIVE); UROBILINOGEN,URINE 0.2 mg/dL (0.2-1.0)
[2023-10-26 12:12] LABS: ADD UA MICROSCOPIC NO
[2023-10-26 12:21] LABS: INFLUENZA TYPE A Positive For Type A (NEGATIVE)
[2023-10-26] MEDS ORDERED: AZIT250T9 PO (12:26)
[2023-10-26] MEDS ORDERED: BENZ200C53 PO (12:26)
[2023-10-26] MEDS ORDERED: OSEL75 PO (12:26)
[2023-10-26 12:29] LABS: BASOPHILS # (AUTO) 0.02 K/uL (0.00-0.20); BASOPHILS % (AUTO) 0.2 % (0.0-5.0); EOSINOPHILS # (AUTO) 0.03 K/uL (0.00-0.70); EOSINOPHILS % (AUTO) 0.4 % (0.0-8.0); IMMATURE GRANULOCYTE ABSOLUTE 0.02 K/uL (0-1); LYMPHOCYTES # (AUTO) 1.7 K/uL (1.0-4.8); LYMPHOCYTES % (AUTO) 20.7 % (21.0-51.0); MEAN CORPUSCULAR HEMOGLOBIN 30.5 pg (27.0-33.0); MEAN CORPUSCULAR HGB CONC 32.7 g/dL (32.0-36.0); MEAN CORPUSCULAR VOLUME 93.2 fL (79-99); MONOCYTES % (AUTO) 11.5 % (3.0-13.0); NEUTROPHILS # (AUTO) 5.5 K/uL (1.8-7.7); PLATELET COUNT (AUTO) 213 K/uL (130-400); RED CELL DISTRIBUTION WIDTH 12.5 % (11.0-15.5); WHITE BLOOD COUNT (AUTO) 8.2 K/uL (4.8-10.8)
[2023-10-26 12:47] LABS: CREATININE 0.7 mg/dL (0.5-1.5); POTASSIUM 3.4 mmol/L (3.5-5.1)
[2023-10-26 12:57] LABS: ALBUMIN 3.6 g/dL (3.5-5.0); BILIRUBIN,TOTAL 0.2 mg/dL (0.2-1.0); TOTAL PROTEIN, SERUM 7.9 g/dL (6.0-8.3)
[2023-10-26 13:32] VITALS: BP 165/89; PULSE 98; RESP 20; O2SAT 96
== END 2023-10-26 13:33 | disposition home or self-care (01) ==
LOC: EDH 11:03
DX: J10.1 Influenza due to other identified influenza virus with other respiratory manifestations (principal); R05.9 Cough, unspecified; E78.00 Pure hypercholesterolemia, unspecified; I10 Essential (primary) hypertension; Z79.899 Other long term (current) drug therapy; Z90.49 Acquired absence of other specified parts of digestive tract; Z20.822 Contact with and (suspected) exposure to COVID-19
CPT/HCPCS: 99284; 71045; 87635; 80053; 85025; 87880; 87804 ×2; 81003; 36415; C9803

== ENCOUNTER → 2024-06-03 | Emergency (ER) | payer OTHER ==
[~2024-06-03] MED LIST changes: +AZIT250T9 PO; +BENZ200C53 PO; +OSEL75 PO
[2024-06-03 00:53] LABS: BASOPHILS # (AUTO) 0.03 K/uL (0.00-0.20); BASOPHILS % (AUTO) 0.3 % (0.0-5.0); EOSINOPHILS # (AUTO) 0.26 K/uL (0.00-0.70); EOSINOPHILS % (AUTO) 2.7 % (0.0-8.0); HEMATOCRIT 35.9 % (36-48); IMMATURE GRANULOCYTE ABSOLUTE 0.04 K/uL (0-1); LYMPHOCYTES # (AUTO) 3.4 K/uL (1.0-4.8); LYMPHOCYTES % (AUTO) 35.2 % (21.0-51.0); MEAN CORPUSCULAR HEMOGLOBIN 30.7 pg (27.0-33.0); MEAN CORPUSCULAR HGB CONC 33.1 g/dL (32.0-36.0); MEAN CORPUSCULAR VOLUME 92.5 fL (79-99); MONOCYTES # (AUTO) 0.7 K/uL (0.1-1.0); MONOCYTES % (AUTO) 7.6 % (3.0-13.0); NEUTROPHILS # (AUTO) 5.2 K/uL (1.8-7.7); NEUTROPHILS % (AUTO) 53.8 % (40.0-77.0); PLATELET COUNT (AUTO) 241 K/uL (130-400); RED BLOOD CELL COUNT(AUTO) 3.88 MIL/uL (4.00-5.50); RED CELL DISTRIBUTION WIDTH 12.5 % (11.0-15.5); WHITE BLOOD COUNT (AUTO) 9.7 K/uL (4.8-10.8)
[2024-06-03 01:05] LABS: CREATININE 0.9 mg/dL (0.5-1.0); POTASSIUM 3.5 mmol/L (3.5-5.1)
[2024-06-03 01:06] LABS: INR 0.96 (0.85-1.15); PROTHROMBIN TIME 10.4 SEC (9.6-11.6)
[2024-06-03 01:08] LABS: PARTIAL THROMBOPLASTIN TIME 24.2 SEC (26.3-35.5)
[2024-06-03 01:09] LABS: ALBUMIN 3.3 g/dL (3.5-5.0); BILIRUBIN,TOTAL 0.2 mg/dL (0.2-1.0); MAGNESIUM 1.7 mg/dL (1.80-2.40); TOTAL PROTEIN, SERUM 7.1 g/dL (6.0-8.3)
[2024-06-03 01:15] LABS: B-TYPE NATRIURETIC PEPTIDE 34 pg/mL (0-100)
[2024-06-03 04:38] VITALS: BP 151/79; PULSE 72; RESP 17; O2SAT 97
== END ==
LOC: EDH 00:37
DX: S46.912A Strain of unspecified muscle, fascia and tendon at shoulder and upper arm level, left arm, initial encounter (principal); F41.9 Anxiety disorder, unspecified; R07.89 Other chest pain; I10 Essential (primary) hypertension; E78.00 Pure hypercholesterolemia, unspecified; Z79.899 Other long term (current) drug therapy; Z90.49 Acquired absence of other specified parts of digestive tract; Z98.890 Other specified postprocedural states; X58.XXXA Exposure to other specified factors, initial encounter; Y93.89 Activity, other specified; Y92.89 Other specified places as the place of occurrence of the external cause; Y99.8 Other external cause status
CPT/HCPCS: 36415; 71045; 80053; 83735; 83880; 84484; 85025; 85610; 85730; 93005

== ENCOUNTER → 2024-11-24 | Emergency (ER) | payer OTHER | END | disposition left against medical advice (07) | LOC: EDH 13:27 | DX: R42 Dizziness and giddiness (principal); Z53.21 Procedure and treatment not carried out due to patient leaving prior to being seen by health care provider ==